=== PATIENT | female | born 1970 | race Caucasian/White ===

== ENCOUNTER 2018-01-25 09:19 | Emergency (ER) | payer MEDICAID ==
[~2018-01-25] VITALS: Ht 167.6 cm; Wt 75.0 kg
[2018-01-25] MEDS ORDERED: KETOROLAC 60MG/2ML VIAL IM ONE (09:45)
[2018-01-25 09:54] VITALS: BP 123/84
== END 2018-01-25 11:29 | disposition home or self-care (01) ==
LOC: ER 09:53
DX: M25.522 Pain in left elbow (principal); M79.602 Pain in left arm; M79.621 Pain in right upper arm; M25.512 Pain in left shoulder; W01.0XXA Fall on same level from slipping, tripping and stumbling without subsequent striking against object, initial encounter; Y93.89 Activity, other specified; Y99.8 Other external cause status; Y92.89 Other specified places as the place of occurrence of the external cause; Z90.49 Acquired absence of other specified parts of digestive tract
CPT/HCPCS: 73030; 73060; 73080; 73090; 81025; 96372; 99284; J1885; A4565